=== PATIENT | female | born 1955 | race Caucasian/White ===

== ENCOUNTER 2020-03-11 05:14 | Emergency (ER) | payer MEDICARE, OTHER ==
[~2020-03-11] VITALS: Ht 167.6 cm; Wt 78.1 kg
--- NOTE | 2020-03-11 05:21 | PHYS DOC ---
Past History Past Medical History: Anemia, Diabetes, Hypertension, Pneumonia, Renal Disease, Renal Failure, Other Past Medical History COVID PNEUMONIA- INTUBATED 2 MONTHS , Renal Transplant 2004 (RESHMA VALIENTE MD) Past Surgical History: Angioplasty, Other Past Surgical History CABG 2003 x3 vessel (RESHMA VALIENTE MD) General Adult HPI: HPI: ".. I woke up short of breath..and congested.. nasal and forehead.. I think I am just in a panic.. this is the lst time I ve been short of breath since discharge from ..with COVID pneumonia.." Patient is a 64 year old female who presents with above hx and complaints awakening left nasal congestion, shortness of breath, malaise,. Patient discharged from in and December after being on the ventilator 2 months for Covid pneumonia . Patient has an extensive medical history with chronic renal failure status post transplant in 2004. Patient is still on immunosuppression for her transplant kidney. Patient has not had dialysis for over a week. Has recently had nausea and vomiting and flulike symptoms. Patient has coronary artery disease and underwent triple bypass in 2003 patient gets all her care at . Patient still follows at the renal transplant clinic. Patient denies any intake bad food. No recent travel. No specific ill contacts. Patient denies any recent changes in meds. (RESHMA VALIENTE MD) Review of Systems: Review of Systems: Constitutional: Denies fever or chills Eyes: Denies change in visual acuity HENT: Denies nasal congestion or sore throat Respiratory: Complains of shortness of breath Cardiovascular: Denies chest pain or edema GI: Complains of nausea, vomiting,. Denies bloody stools or diarrhea : Denies dysuria Musculoskeletal: Denies back pain or joint pain Integument: Denies rash Neurologic: Denies headache, focal weakness or sensory changes Endocrine: Denies polyuria or polydipsia Lymphatic: Denies swollen glands Psychiatric: Denies depression or anxiety (RESHMA VALIENTE MD) Family History: Family History: Noncontributory to presentation (RESHMA VALIENTE MD) Current Medications: Current Meds: See nursing for home meds, Patient still on CellCept 500 in the morning and 250 at night. (RESHMA VALIENTE MD) Allergies: Allergies: Multiple drug allergies-Cipro, Keflex, vitamin C, codeine, morphine, sent Avastin, oxycodone, Sumitriptin, Rayan. (RESHMA VALIENTE MD) Physical Exam: PE: Constitutional: Moderate acute distress, non-toxic appearance. [] HENT: Normocephalic, atraumatic, bilateral external ears normal, oropharynx moist, no oral exudates, nose swollen turbinate, clear rhinorrhea. Eyes: PERRLA, EOMI, conjunctiva pale, no discharge. [] Neck: Normal range of motion, no tenderness, supple, no stridor. [] Cardiovascular:Heart rate regular rhythm, no murmur []PMI to Lt. Lungs & Thorax: Bilateral breath sounds equal apexes, scattered wheezes, crackle bilateral on auscultation []Old surgical scar . Abdomen: Bowel sounds normal, soft, no tenderness, no masses, no pulsatile masses. [Old surgical scars. Lt lower abdomen transplant kidney is nontender. No rebound pain Skin: Warm, dry, no erythema, no rash. Pale Back: No tenderness, no CVA tenderness. [] Extremities: No tenderness, no cyanosis, no clubbing, ROM intact, ankle edema. No cording. Shunt left forearm has thrill. Neurologic: Alert and oriented X 3, normal motor function, normal sensory function, no focal deficits noted. [] Psychologic: Affect very anxious, judgement normal, mood depressed. (RESHMA VALIENTE MD) EKG: EKG: My interpretation EKG shows a sinus rhythm at 65 bpm. Left axis. Prolonged QT interval at 488 ms QTC is 508 ms. Abnormal EKG. [place] baseline. [] (RESHMA VALIENTE MD) Radiology/Procedures: Radiology/Procedures: [] (RESHMA VALIENTE MD) Heart Score: HEART Score for Chest Pain: HEART Score for Chest Pain Response (Comments) Value History Moderately Suspicious 1 ECG Nonspecific Repolarizatio 1 Age > 65 2 Risk Factors 1 or 2 Risk Factors 1 Total 5 Risk Factors: Risk Factors: DM, Current or recent (<one month) smoker, HTN, HLP, family history of CAD, obesity. Risk Scores: Score 0 - 3: 2.5% MACE over next 6 weeks - Discharge Home Score 4 - 6: 20.3% MACE over next 6 weeks - Admit for Clinical Observation Score 7 - 10: 72.7% MACE over next 6 weeks - Early Invasive Strategies (RESHMA VALIENTE MD) Course & Med Decision Making: Course & Med Decision Making Pertinent Labs and Imaging studies reviewed. (See chart for details) Labs. and Xrays pending at shift change. Pt. endorsed to Dr. Stephen at shift change. Plan transfer to her hospital of choice and hospital that has managed her Renal Transplant, Renal Failure, ByPass Surgery & Stents and Recent Respirator Failure/ intubation-From COVID Impression: 1. Dyspnea 2. Hx COVID -pneumonia Nov. & Dec. 3. Hx. of Renal Transplant 4. Hx. CARDz. 5. Hx. Anemia 6. Hyperkalemia 7. Hypocalcemia Still awaiting for room at . 1800. (RESHMA VALIENTE MD) Course & Med Decision Making Accept the patient care at shift change. Discussed with patient plan of care pending labs. Patient's potassium is 6.7 with mildly peaked T waves on EKG. Normal QRS. Patient's calcium is below 5.0, replacing with calcium gluconate and treating hyperkalemia with insulin. Discussed with [facility] to transport due to her primary care for kidney transplant splint being there. They'll accept patient to (LEFTY STEPHEN MD) [place] Disclaimer: [place] Disclaimer: This electronic medical record was generated, in whole or in part, using a voice recognition dictation system. (RESHMA VALIENTE MD) Departure Departure: Impression: Primary Impression: Hyperkalemia Disposition: 02 DC/TRF OTHER SHORT TERM HOS Condition: GUARDED Referrals: CAMERON SCOTT MD (PCP) [place] Disclaimer This chart was dictated in whole or in part using Voice Recognition software in a busy, high-work load, and often noisy Emergency Department environment. It may contain unintended and wholly unrecognized errors or omissions. (RESHMA VALIENTE MD) [place] Disclaimer This chart was dictated in whole or in part using Voice Recognition software in a busy, high-work load, and often noisy Emergency Department environment. It may contain unintended and wholly unrecognized errors or omissions. (RESHMA VALIENTE MD) RESHMA VALIENTE MD Mar 11, 2020 05:21 LEFTY STEPHEN MD Mar 11, 2020 10:08
[2020-03-11] MEDS ORDERED: ALBUTEROL SULFATE 8GM INHALER. INH ONE (05:30)
[2020-03-11] MEDS ORDERED: IV RINGERS SOLUTION,LACTATED 1,000 ML IV SCH (05:30)
--- NOTE | 2020-03-11 06:20 | EKG ---
[address] [address] Test Date: 2020-03-11 Test Time: 05:45:09 Pat Name: PROMISE PEÑA Department: Room: Gender: F Model Builder Display: : 1955 Requested By: RESHMA VALIENTE Order Number: [id number] Reading MD: Duncan Rowell Measurements Intervals [place] Rate: 65 P: -13 SD: 208 QRS: -24 QRSD: 102 T: 96 QT: 488 QTc: 508 Interpretive Statements SINUS RHYTHM LEFTWARD AXIS PROLONGED QT ABNORMAL ECG RI6.02 No previous ECG available for comparison Electronically Signed On 03-11-2020 15:02:20 [employer] by Duncan Rowell
[2020-03-11 07:00] LABS: BASO # 0.1 x10^3/uL (0.0-0.2); BASO % 2 % (0-3); EOS # 0.1 x10^3/uL (0.0-0.7); EOS % 1 % (0-3); HEMATOCRIT 33.3 % (36.0-47.0); HEMOGLOBIN 10.8 g/dL (12.0-15.5); LYMPH % 22 % (24-48); MEAN CORPUSCULAR HEMOGLOBIN 31 pg (25-35); MEAN CORPUSCULAR HGB CONC 32 g/dL (31-37); MEAN CORPUSCULAR VOLUME 94 fL (79-100); MONO # 0.2 x10^3/uL (0.0-1.1); MONO % 5 % (0-9); NEUT # 3.4 x10^3uL (1.8-7.7); NEUT % 71 % (31-73); PLATELET COUNT 151 x10^3/uL (140-400); RED BLOOD COUNT 3.52 x10^6/uL (3.50-5.40); WHITE BLOOD COUNT 4.8 x10^3/uL (4.0-11.0)
[2020-03-11] MEDS ORDERED: ONDANSETRON PF 4 MG/2 ML VIAL. IVP ONE (07:15)
[2020-03-11 07:27] LABS: ALK PHOS 96 U/L (46-116); ALT (SGPT) 19 U/L (14-59); ANION GAP 18 (6-14); AST (SGOT) 17 U/L (15-37); BLOOD UREA NITROGEN 116 mg/dL (7-20); CARBON DIOXIDE 20 mmol/L (21-32); CHLORIDE 95 mmol/L (98-107); CREATININE 18.5 mg/dL (0.6-1.0); DIRECT BILIRUBIN 0.2 mg/dL (0.0-0.2); GFR 1.9; GLUCOSE 183 mg/dL (70-99); LIPASE 335 U/L (73-393); MAGNESIUM 1.9 mg/dL (1.8-2.4); SODIUM 133 mmol/L (136-145); TOTAL BILIRUBIN 0.3 mg/dL (0.2-1.0); TOTAL PROTEIN 6.9 g/dL (6.4-8.2)
[2020-03-11 07:31] LABS: CALCIUM < 5.0 mg/dL (8.5-10.1); POTASSIUM 6.7 mmol/L (3.5-5.1)
--- NOTE | 2020-03-11 07:42 | RAD ---
EXAM: XR CHEST 1V INDICATION: Reason: dyspnea / Spl. Instructions: / History: . TECHNIQUE: Single view COMPARISON: None FINDINGS: The heart size is borderline enlarged. Post-CABG surgical changes are present.. The great vessels appear unremarkable. There is no hilar or mediastinal mass. The lungs show coarse reticular opacities bilaterally.. There is no pleural effusion or pneumothorax. There are no significant osseous abnormalities. IMPRESSION: 1. Coarse reticular opacities bilaterally may be secondary to chronic interstitial lung disease or p ulmonary edema. 2. Post-CABG surgical changes are present. Electronically signed by: Keegan Gray MD (03/11/2020 7:40 AM) [id number]
[2020-03-11 07:45] LABS: INFLUENZA A PATIENT NEGATIVE (NEGATIVE); INFLUENZA B PATIENT NEGATIVE (NEGATIVE)
[2020-03-11] MEDS ORDERED: ALBUTEROL SULFATE 2.5 MG/3 ML NEBU. INH ONE (07:45)
[2020-03-11] MEDS ORDERED: DEXTROSE 50% 25 GM / 50ML DISP.SYRIN. IV ONE ×2 (07:45→13:00)
[2020-03-11] MEDS ORDERED: CALCIUM GLUCONATE 1,000 MG/10 ML VIAL IV ONE ×3 (07:45→13:00)
[2020-03-11] MEDS ORDERED: INSULIN REGULAR 100 UNIT/ML 3ML VIAL. IV ONE ×2 (07:45→13:00)
[2020-03-11 07:56] LABS: % ATYL 2 % (0-0); % BANDS 1 % (0-9); % LYMPHS 26 % (24-48); % MONOS 2 % (0-10); % SEGS 69 % (35-66); PLT ESTIMATE ADEQUATE (ADEQUATE); POLYCHROMASIA PRESENT
[2020-03-11 12:08] LABS: CREATININE 18.6 mg/dL (0.6-1.0); GFR 1.9
[2020-03-11 12:14] LABS: CALCIUM 5.3 mg/dL (8.5-10.1)
[2020-03-11 12:16] LABS: POTASSIUM 6.4 mmol/L (3.5-5.1)
[2020-03-11 18:20] VITALS: BP 130/65
== END 2020-03-11 18:43 | disposition short-term general hospital (02) ==
LOC: ER 05:14
DX: E87.5 Hyperkalemia (principal); R06.00 Dyspnea, unspecified; E83.51 Hypocalcemia; J44.9 Chronic obstructive pulmonary disease, unspecified; I10 Essential (primary) hypertension; I12.9 Hypertensive chronic kidney disease with stage 1 through stage 4 chronic kidney disease, or unspecified chronic kidney disease; N18.9 Chronic kidney disease, unspecified; E11.22 Type 2 diabetes mellitus with diabetic chronic kidney disease; Z20.828 Contact with and (suspected) exposure to other viral communicable diseases; Z86.2 Personal history of diseases of the blood and blood-forming organs and certain disorders involving the immune mechanism; Z94.0 Kidney transplant status; Z88.5 Allergy status to narcotic agent; Z91.018 Allergy to other foods; Z88.8 Allergy status to other drugs, medicaments and biological substances
CPT/HCPCS: 36415; 71045; 80048; 80076; 82550; 82947; 83690; 83735; 83880; 84443; 84484; 85007; 85025; 85379; 85610; 85730; 87804; 93005; 94640; 96374; 96375; 96376; 99285; C9803; J0610; J1815; J2405; J7613; U0003; 94664

== ENCOUNTER → 2021-05-15 | Outpatient (CLI) | payer MEDICARE, OTHER | LOC: LAB 14:05 | PROVIDERS: ATTEND Internal Medicine Cardiovascular Disease | DX: I26.99 Other pulmonary embolism without acute cor pulmonale (principal); Z79.01 Long term (current) use of anticoagulants | CPT/HCPCS: 36415; 85610 ==